=== PATIENT | male | born 2000 | race Caucasian/White ===

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

== ENCOUNTER → 2018-03-26 | Outpatient (CLI) | payer BC ==
--- NOTE | 2018-03-26 19:05 | PN ---
PROGRESS NOTE This is a 17-year-old boy with known history of narcolepsy who is maintained on Xyrem. The diagnosis was established at the age of 14 and the patient has been on his Xyrem since. I am seeing this patient for a routine followup. He has narcolepsy with cataplexy and currently he is on Xyrem 9 g on a daily basis. He also has history of depression and bipolar disorder and recently has seen a psychiatrist and he was taken off the lithium. 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 The patient is working night shifts. He goes to work between 11:00 p.m. and 7:00 a.m. Immediately after arrives home at around 8:00 in the morning, he goes to bed. He takes his Xyrem dose and goes to bed and within 4 hours, he takes a 2nd Xyrem does. Both doses at 4.5 g, making a total of 9 g. He will get out of bed around 4:30 p.m. in the afternoon. His sleep is not fragmented and he is feeling quite alert and refreshed and awake during the evening, especially at midnight at work hours, where he is fully alert and awake and does not fall asleep, nor does he take any naps. He is not having any cataplexy. No sleep paralysis. No hallucinations. No side effects related to Xyrem treatment. Weight has been stable. No symptoms of depression. No substance abuse. He is quite comfortable and his treatment seems to be very successful at this point in time. He is able to drive between [facility] and [place] without having to fall asleep. REVIEW OF SYSTEMS: A 12-point review of systems was done. Positive findings are mentioned above in the history of present illness. No history of anxiety. No history of active depression. No signs to suggest any bipolar features at this point in time. No weight gain. No headaches. No chest pain. No shortness of breath. No palpitations. No hypersomnia. No falling asleep while driving or working hours. His [place] score is at 4. BP is 119/64, pulse 68, respirations 16, temperature 97.2, saturation 99% on room air. Weight is 179. Height is 6 feet. Weight is . GENERAL: Appears calm, comfortable. Head is atraumatic, normocephalic. Neck is supple. There is no JVD. No goiter or neck masses. LUNGS: Clear to auscultation. HEART: Sounds are regular rate and rhythm. Normal S1, S2. No S3. No murmurs. ABDOMEN: Soft, nontender. No organomegaly. EXTREMITIES: No edema. No cyanosis or clubbing. NEUROLOGIC: The patient is awake and alert. There is no focal neurological deficits. IMPRESSION: 1. Narcolepsy type 1 with cataplexy and the patient is currently well-treated with Xyrem, a total of 9 g on a daily basis. 2. Bipolar disorder, currently off lithium. 3. Depression, well-treated. 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 5. Remote history of suicide. 6. Previous history of prescription drug abuse and alcohol abuse; none for now. PLAN: The patient is working night shifts. He seems to be managing well and he is awake and alert and he is able to fulfill his job requirements at the automotive factory without any major difficulties. He is not taking any power naps. For now, he is utilizing the Xyrem and he is sleeping in the morning and on weekends he is keeping the same sleep schedule, which is essentially between 8:00 a.m. and 4:30 p.m. He is at a maximal dose of Xyrem at 9 g on a daily basis. No reported side effects of treatment. He is not drinking any alcohol nor is he taking any other prescription drugs. He is currently off lithium. He is following very good sleep hygiene measures. No reported symptoms of the narcolepsy and he is well-treated. No sleep paralysis. No hallucinations. The medication will be renewed and the patient was seen back in 6 months' time in followup. This is a successful treatment for the time being and no need for any further intervention. MMODL / IJN: [id number] /
== END | disposition home or self-care (01) ==
LOC: SLEEP 16:32
PROVIDERS: ATTEND Internal Medicine Critical Care Medicine
DX: G47.411 Narcolepsy with cataplexy (principal); F31.9 Bipolar disorder, unspecified

== ENCOUNTER → 2018-10-15 | Outpatient (CLI) | payer BC ==
--- NOTE | 2018-10-15 13:17 | PN ---
PROGRESS NOTE Tunde is a 18-year-old male patient with known history of narcolepsy, type 1 maintained on Xyrem. The patient has been diagnosed having narcolepsy type 1 with history of cataplexy and he is currently on maximal dose of therapeutic dose of IM which is 9 g on a daily basis. His comorbid conditions include bipolar disorder. 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 He is taking Xyrem on a regular basis. He is still following the same sleep schedule which is leaving between 8 8 or 9 o'clock in the morning till 5:00 pm. His work schedule between 11:00 pm and 7:00 am in the morning. He typically takes the 1st so dose of IM at the time to go to bed and following 3 hours he takes his 2nd dose. He is awake and refreshed and alert. No hallucinations, no cataplexy, no sleep paralysis. No active signs or symptoms of depression. Never the less, I came to understand the patient has been having some problems with focus and concentration. He is noticing this at working hours; however, he is not falling sleep nor he is doing any judgment mistakes or errors at his work. According to the mother the patient has been having difficulty with concentration and his and also becoming more anxious and fatigued. He has been having problems also retaining new information. He has an upcoming appointment with the neuro psychologist which I think will be beneficial for him to be evaluated regarding his underlying psychiatric disorder and bipolar disorder. As mentioned earlier, is not having any sleep attacks and I may consider stepping on his treatment in adding another stimulant like Provigil or Nuvigil. This continues to have issues with focus and concentration. For the most part, his treatment is successful and is not experiencing any side effects to the narcolepsy treatment with diet. REVIEW OF SYSTEMS: A 12-point review of system was done. Positive findings are mentioned in history of present illness. Some degree of anxiety is present. No active sudden depression. No weight gain. No snoring. No altered mentation. No fall asleep or sleep attacks. No sleep at all. Sensation no cataplexy. [place] score is currently at 1. PHYSICAL EXAMINATION: BP is 124/69, pulse 77, respirations 16, temperature 97.3 saturation 97% on room air. [place] score is 1 BMI 23.3 general appearance calm comfortable head is atraumatic, normocephalic. NECK: Supple. There is no JVD. No goiter or neck masses. LUNGS: Clear to auscultation. HEART: Sounds regular rhythm. Normal S1, S2. No S3. No murmurs. ABDOMEN: Soft, nontender. No organomegaly. EXTREMITIES: No edema. No cyanosis or clubbing. NEUROLOGIC: Alert and oriented x3. No focal neurological deficits. PSYCHIATRIC: Negative for anxiety or depression. SKIN: Negative for any wound or ulceration. IMPRESSION: 1. Narcolepsy type 1 currently on Xyrem. Patient has been successfully treated and no sleep attacks or aphasia, cataplexy or sleep paralysis. No side effects to the treatment and medication will be renewed. 2. Difficulty with focus and concentration and fatigue, could be related to underlying psychiatric disorder and the patient will be seeing a neuropsychologist. The symptoms of narcolepsy contributing to the symptoms also. 3. Bipolar disorder. 4. Depression. 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 6. Remote history of suicide. 7. Previous history of prescription drug abuse and alcohol abuse. The patient has been free of the any drug abuse for many years. PLAN: 1. Xyrem medication was renewed. 2. Follow up with a neuropsychologist. 3. Consider addition of Provigil or Nuvigil to improve his concentration and attention span. 4. See me back in 6 months' time in followup following a neuropsychiatric evaluation. MMODL / IJN: [id number] /
== END | disposition home or self-care (01) ==
LOC: SLEEP 11:00
PROVIDERS: ATTEND Internal Medicine Critical Care Medicine
DX: G47.419 Narcolepsy without cataplexy (principal); Z53.9 Procedure and treatment not carried out, unspecified reason

== ENCOUNTER → 2019-03-18 | Outpatient (CLI) | payer BC ==
--- NOTE | 2019-03-18 18:29 | PN ---
PROGRESS NOTE Tunde wen 18, with a history of narcolepsy, type I, maintained on Xyrem 4.5 grams twice a day. He continues to work night shifts. He works between 5 p.m. and 5 a.m. on Sunday and for one week and Sunday, Sunday, Sunday, Sunday and Sunday on the week after that. He continues to alternate between these two schedules. He sleeps in general between 6:30 a.m. and 3 p.m. He has been on Xyrem on a regular basis and has been well treated. Nevertheless, during his last evaluation he was mentioning that he was having some issues with concentration, especially at work time. For that reason I gave him 200 mg of Provigil to be taken right before going to work. He did the treatment. He noted that he is having more difficulties with initiating sleep after he comes back from work. As such, at times he is having difficulties with sleep-onset insomnia and he feels like Provigil has affected his sleep quality in general. No recent weight gain. Note that the patient has a history of bipolar disorder. No symptoms to suggest acute manic attack or active bipolar disorder. Nevertheless, the patient needs to establish himself with a psychiatrist, and he has already made an appointment with . He is doing well otherwise. No substance abuse. No cataplexy. No sleep paralysis. No hallucinations. REVIEW OF SYSTEMS: Twelve-point review of systems was done; unchanged compared to his last visit with the exception of some occasional difficulties in sleep initiation, which probably is related to Provigil. His [place] score is down to 0. PHYSICAL EXAMINATION: VITAL SIGNS: BP is 118/63, pulse 59, respirations 16, temperature 98.4, saturation 98% on room air. Height is 6 feet 0 inch, weight 166 and [place] score 0. BMI is 22.5. GENERAL APPEARANCE: Calm, comfortable. HEAD: Atraumatic, normocephalic. NECK: Supple. No JVD. No goiter or neck masses. LUNGS: Clear to auscultation. No wheezes or rhonchi. HEART: Heart sounds are positive S1, S2. Regular. No murmurs. ABDOMEN: Soft, nontender. No organomegaly. EXTREMITIES: No edema. No cyanosis or clubbing. NEUROLOGIC: Alert and oriented x3. No focal neurological deficits. SKIN: Negative for any wounds or ulceration. IMPRESSION: 1. Type I narcolepsy, on Xyrem and Provigil. The patient is well treated in terms of symptoms of hypersomnia, and the patient has no major sleepiness, tiredness, fatigue, cataplexy, sleep paralysis or hallucinations. Provigil was added due to difficulty in concentration, and this affected his sleep quality. 2. Bipolar disorder. 3. Depression. 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 5. Remote history of suicide . 6. Previous history of drug abuse and alcohol abuse; none for now. PLAN: 1. Continue Xyrem. 2. Discontinue Provigil due to above-mentioned side effects. 3. Follow up psychiatrist as scheduled regarding possibility of hypomania or bipolar disorder affecting sleep quality in general and to decide on treatment if needed. For now, the patient will be kept on Xyrem full dose, 9 grams, and Provigil will be discontinued for now. MMODL / IJN: [id number] /
== END | disposition home or self-care (01) ==
LOC: SLEEP 16:14
PROVIDERS: ATTEND Internal Medicine Critical Care Medicine
DX: G47.419 Narcolepsy without cataplexy (principal); G47.10 Hypersomnia, unspecified; F31.9 Bipolar disorder, unspecified; F10.11 Alcohol abuse, in remission; F19.11 Other psychoactive substance abuse, in remission; Z91.5 Personal history of self-harm; Z79.899 Other long term (current) drug therapy

== ENCOUNTER → 2019-12-09 | Outpatient (CLI) | payer BC ==
--- NOTE | 2019-12-09 22:52 | PN ---
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 The patient is coming in for routine check. His last evaluation was in March of 2019. He remains on the higher dose of Xyrem which is 4.5 g twice a day. 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 He is living in [place]. He is driving back and forth to work without having to fall asleep and he feels that he is safe and is able to function well on driving and he does not fall asleep behind the wheel. 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 He works between 5:00 pm and 5:00 am in the morning. He gets up around 6:30 am when he gets into bed. He takes his 1st dose of Xyrem around 6:30 am while going to bed and he takes the second dose 3 hours following that. During his last evaluation, he was having some issues with maintaining alertness at work. For that reason, I gave him Provigil 200 mg. He did experience some initial side effects. I asked him to discontinue the medication. However at a later stage, the patient decided to take the Provigil and he is taking the Provigil when he wakes up 3:00 pm in the afternoon. I think it is not lasting him all day and the patient is getting some fatigue and tiredness on the job. On today's evaluation, we have made suggestions to take his Provigil dose which is a 200 mg tablet right after going back to work at 5 pm and after. His weight has been stable. No history of alcoholism. No history of any alcohol ingestion other than some minimal social ingestion. He does not need any naps during the day. His sleep quality is good. He is waking up refreshed and the patient is not having any sleep attacks. No psychiatric features such as increased anxiety or depression. He does have some chronic component of social anxiety. No tearfulness. No worthlessness. No signs of any depression. No signs of any side effects to the Xyrem such as fluid retention or hypertension or any other GI side effects. The patient has been taking the medication without any major difficulties. His weight has been stable. REVIEW OF SYSTEMS: Fourteen-point review of system was done and the patient has been negative on things mentioned above. No sleep paralysis. No hallucinations. No cataplexy has been noted while being on Xyrem. PHYSICAL EXAMINATION: VITAL SIGNS: BP is 97/55, pulse 64, respirations 16, temperature 97.9, saturation 98% on room air. Height is 6 feet 1 inches, weight is 162, Waverly score 2, BMI 21.3. GENERAL APPEARANCE: Calm, comfortable. Head is atraumatic, normocephalic. NECK: Supple. No JVD. No goiter. No neck mass. LUNGS: Clear to auscultation. HEART: Heart sounds are regular rate and rhythm. Normal S1/S2. No murmurs. ABDOMEN: Soft, nontender. No organomegaly. EXTREMITIES: No edema. No cyanosis or clubbing. IMPRESSION: 1. Narcolepsy type 1, currently on Xyrem in addition to 200 mg of Provigil. Xyrem is being given at a maximum dose of 9 g during sleep. No side effects reported. The patient is having a good time during the day where he is awake and alert with an Waverly score of 0 without any sleep attacks. No impairment of judgment or concentration or memory during working hours. Would like to push the Provigil dose to 5:00 pm just after going to work. 2. Bipolar disorder. 3. History of depression. 4. 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 5. Remote history of depression and suicide, inactive and stable for now. PLAN: 1. Use Xyrem for another 6 months. 2. Provigil 200 mg to be taken just prior to going to work at around 5:00 pm. 3. Sleep hygiene measures are all adequate. 4. No substance abuse. 5. No major side effects. The patient will continue the treatment and see him back in 6 months' time for followup. MMODL / IJN: [id number] /
== END | disposition home or self-care (01) ==
LOC: SLEEP 16:05
PROVIDERS: ATTEND Internal Medicine Critical Care Medicine
DX: G47.419 Narcolepsy without cataplexy (principal); F31.9 Bipolar disorder, unspecified; Z86.59 Personal history of other mental and behavioral disorders